=== PATIENT | male | born 1955 | race Two or more races ===

== ENCOUNTER 2024-11-12 01:45 | Inpatient (IN) | payer OTHER ==
[~2024-11-12] VITALS: Ht 188 cm; Wt 104.3 kg
[2024-11-12] MEDS ORDERED: VERAPAMIL SR120 MG PO (01:55)
[2024-11-12] MEDS ORDERED: IRBESARTAN75 MG PO (01:55)
[2024-11-12] MEDS ORDERED: BETAHISTINE5 GM (01:56)
--- NOTE | 2024-11-12 01:56 | NUR ---
SE RECIBE PTE ALERTA Y ORIENTADO X3 EN AMBULANCIA YA QUE SE REEMA Y SE LASTIMO CADERA IZQUIEDA.
[2024-11-12] MEDS ORDERED: TRAMADOL HCL 50 MG TABLET PO STA (02:32)
[2024-11-12] MEDS ORDERED: KETOROLAC TROMETHAMINE 60 MG VIAL IM STA (02:32)
--- NOTE | 2024-11-12 03:54 | NUR ---
RN.NIMISHA ORIENTA PTE SOBRE TRATAMIENTO MEDICO Y SE EJECUTA EN NELSON TOTALIDAD
[2024-11-12] MEDS ORDERED: 0.9 % SODIUM CHLORIDE 1,000 ML IV STA (05:12)
[2024-11-12 07:45] LABS: BASO % 0.5 % (0.1-1.2); EOS # 0.11 (0.04-0.54); EOS % 0.7 % (0.7-7.0); LYMPH # 2.78 (1.18-3.74); LYMPH % 17.8 % (19.3-53.1); MEAN PLATELET VOLUME 10.50 fl (9.4-12.4); MONO # 1.23 (0.24-0.82); MONO % 7.9 % (4.7-12.5); NEUT # 11.31 (1.56-6.13); NEUT % 72.7 % (34.0-71.1); RED CELL DISTRIBUTION WIDTH 14.4 % (11.6-14.4)
[2024-11-12 08:28] LABS: INR 1.07
[2024-11-12 08:34] LABS: ALT/SGPT 47.0 U/L (12-78); AST/SGOT 25.0 U/L (15-37); BILIRUBIN TOTAL 1.17 mg/dL (0.3-1.2); BUN CREA RATIO 18.0 (7.0-25.0); CREATININE SERUM 0.89 mg/dL (0.70-1.30); GFR 84.75; GLOBULINA 3.0 G/DL (2.4-3.5); GLUCOSE FASTING 101.0 mg/dL (65-100); OSMOLALITY SERUM 288.0 MOSM/KG (275-295)
[2024-11-12] MEDS ORDERED: ACETAMINOPHEN 500 MG GEL..CAP PO PRN (16:45)
[2024-11-12] MEDS ORDERED: 0.9 % SODIUM CHLORIDE 1,000 ML IV SCH ×2 (16:45→17:45)
[2024-11-12] MEDS ORDERED: MORPHINE SULFATE 4 MG/ML CARTRIDGE IV PRN ×2 (16:45→21:15)
[2024-11-12] MEDS ORDERED: CEFAZOLIN SODIUM 1,000 MG VIAL IV ONE ×2 (17:00→17:45)
[2024-11-12] MEDS ORDERED: IRBESARTAN 75 MG TABLET PO SCH (17:00)
[2024-11-12] MEDS ORDERED: PROMETHAZINE HCL 50 MG/ML AMPUL IM PRN (17:45)
[2024-11-12] MEDS ORDERED: MEPERIDINE HCL/PF 50 MG/ML VIAL IM PRN (17:45)
[2024-11-12] MEDS ORDERED: SODIUM CHLORIDE 0.45 % 1,000 ML IV SCH (21:15)
[2024-11-12] MEDS ORDERED: ONDANSETRON HCL 2 MG/ML VIAL IV PRN (21:15)
[2024-11-12] MEDS ORDERED: OxyCODONE HCL 5 MG TABLET (ROXICODONE) PO PRN (21:15)
[2024-11-12] MEDS ORDERED: VANCOMYCIN HCL 1,000 MG VIAL IR ONE ×2 (23:45)
[2024-11-13] MEDS ORDERED: ACETAMINOPHEN 500 MG GEL..CAP PO SCH
[2024-11-13 00:02] LABS: BASO % 0.4 % (0.1-1.2); EOS # 0.03 (0.04-0.54); EOS % 0.1 % (0.7-7.0); LYMPH # 1.10 (1.18-3.74); LYMPH % 5.1 % (19.3-53.1); MEAN PLATELET VOLUME 11.10 fl (9.4-12.4); MONO # 1.06 (0.24-0.82); MONO % 4.9 % (4.7-12.5); NEUT # 19.33 (1.56-6.13); NEUT % 88.9 % (34.0-71.1); RED CELL DISTRIBUTION WIDTH 14.5 % (11.6-14.4)
[2024-11-13 00:25] LABS: INR 1.1
[2024-11-13] MEDS ORDERED: GABAPENTIN 300 MG CAPSULE PO SCH (01:00)
[2024-11-13] MEDS ORDERED: CEFAZOLIN SODIUM 1,000 MG VIAL IV SCH (01:00)
[2024-11-13 06:44] LABS: BASO % 0.2 % (0.1-1.2); EOS # 0.01 (0.04-0.54); EOS % 0.1 % (0.7-7.0); LYMPH # 1.49 (1.18-3.74); LYMPH % 8.3 % (19.3-53.1); MEAN PLATELET VOLUME 11.40 fl (9.4-12.4); MONO # 1.31 (0.24-0.82); MONO % 7.3 % (4.7-12.5); NEUT # 15.03 (1.56-6.13); NEUT % 83.5 % (34.0-71.1); RED CELL DISTRIBUTION WIDTH 14.6 % (11.6-14.4)
[2024-11-13] MEDS ORDERED: FAMOTIDINE/PF 20 MG in 0.9 % SODIUM CHLORIDE 8 ML IV PUSH SCH (09:00)
[2024-11-13] MEDS ORDERED: VERAPAMIL HCL 120 MG TABLET.SA PO SCH (09:00)
[2024-11-13] MEDS ORDERED: APIXABAN 2.5 MG TABLET PO SCH (09:00)
[2024-11-13] MEDS ORDERED: SENNOSIDES 1 TAB TABLET PO SCH (09:00)
[2024-11-13 10:16] VITALS: BP 137/72; O2SAT 97
[2024-11-13 11:50] VITALS: BP 119/72; O2SAT 96
[2024-11-13 16:00] VITALS: BP 139/69; O2SAT 98
[2024-11-13] MEDS ORDERED: Cyanocobalamin/Mecobalamin 1 TAB.SL SL SCH (17:00)
[2024-11-13 19:27] LABS: URINE APPEARANCE Clear; URINE BILIRRUBIN Negative (NEGATIVE); URINE BLOOD Negative; URINE COLOR Yellow; URINE GLUCOSE Negative (NEGATIVE); URINE KETONE 15 (NEGATIVE); URINE LEUKOCYTE Small; URINE NITRATE Negative; URINE PROTEIN Trace (NEGATIVE); URINE UROBILINOGEN 0.2 E.U./dl
[2024-11-13 19:31] LABS: URINE BACTERIA 17.9 uL (0.0-1933); URINE EPITHELIAL CELLS 8.6 uL (0.0-38.8); URINE RBC 5.7 uL (0.0-20.8); URINE WBC 62.4 uL (0.0-23.2)
[2024-11-13 19:39] LABS: URINE CAST 0.29 uL (0.0-1.40)
[2024-11-14 04:26] VITALS: BP 144/77; O2SAT 98
[2024-11-14] MEDS ORDERED: LEVOTHYROXINE SODIUM 50 MCG TABLET PO SCH (06:00)
[2024-11-14 06:43] LABS: BASO % 0.4 % (0.1-1.2); EOS # 0.21 (0.04-0.54); EOS % 1.6 % (0.7-7.0); LYMPH # 2.29 (1.18-3.74); LYMPH % 17.0 % (19.3-53.1); MEAN PLATELET VOLUME 11.60 fl (9.4-12.4); MONO # 1.86 (0.24-0.82); NEUT # 9.01 (1.56-6.13); NEUT % 66.7 % (34.0-71.1); RED CELL DISTRIBUTION WIDTH 14.6 % (11.6-14.4)
[2024-11-14 06:51] LABS: MONO % 13.8 % (4.7-12.5)
[2024-11-14 08:00] VITALS: BP 149/87; O2SAT 97
[2024-11-14] MEDS ORDERED: ELIQUIS2.5 MG PO (09:00)
[2024-11-14] MEDS ORDERED: IRON FUM,PS/FOLIC ACID/VITC/B3 1 CAP CAPSULE PO SCH (09:00)
[2024-11-14] MEDS ORDERED: DUI500 PO (09:00)
[2024-11-14] MEDS ORDERED: PERCOCET 5-3251 EACH PO (09:00)
[2024-11-14 12:43] LABS: COVID-19 AG NEGATIVE (NEGATIVE)
[2024-11-14 16:27] VITALS: BP 103/64; O2SAT 97
== END 2024-11-14 19:36 | DRG 522 ==
LOC: ER 01:45 → O/R 16:53 → SEC-K 16:53 → O/R 23:49 → PED 11-13 07:46 → SURG 11-13 10:13
PROVIDERS: Orthopaedic Surgery; ADMIT Student in an Organized Health Care Education/Training Program; ATTEND Student in an Organized Health Care Education/Training Program
PROC: 0MBM0ZZ Excision of Left Hip Bursa and Ligament, Open Approach (ICD-10-PCS; 2024-11-12)
PROC: 0SRS0JA Replacement of Left Hip Joint, Femoral Surface with Synthetic Substitute, Uncemented, Open Approach (ICD-10-PCS; principal; 2024-11-12 19:45)
DX: S72.032A Displaced midcervical fracture of left femur, initial encounter for closed fracture (principal); D62 Acute posthemorrhagic anemia; M16.12 Unilateral primary osteoarthritis, left hip; E03.9 Hypothyroidism, unspecified; I10 Essential (primary) hypertension; E78.5 Hyperlipidemia, unspecified; G47.33 Obstructive sleep apnea (adult) (pediatric); W13.3XXA Fall through floor, initial encounter; Y93.9 Activity, unspecified; Y92.9 Unspecified place or not applicable